=== PATIENT | male | born 1990 | race Caucasian/White ===

== ENCOUNTER → 2017-04-27 | Day surgery (SDC) | payer OTHER ==
[~2017-04-27] MED LIST: 0.9% Sodium Chloride 1,000 ML IV SCH; POLY17PO6 PO; Sodium Chloride LOK Flush 10 mL Syringe IV PRN; fentaNYL-PF 50 mCg/mL 2 mL Inj IVPUSH PRN
== END | disposition home or self-care (01) ==
LOC: END 00:11
PROVIDERS: ATTEND Internal Medicine Gastroenterology
DX: K62.5 Hemorrhage of anus and rectum (principal); R10.13 Epigastric pain; Z53.09 Procedure and treatment not carried out because of other contraindication